=== PATIENT | female | born 2000 | race Caucasian/White ===

== ENCOUNTER 2023-10-05 14:02 | Emergency (ER) | payer BC, SELFPAY ==
[2023-10-05 14:17] VITALS: BP 152/92
--- NOTE | 2023-10-05 15:46 | ED.GENMED ---
History of Present Illness
General
Chief Complaint: Skin Problem
Source: patient
Exam Limitations: none
Time Seen by Provider: 10/05/23 15:28
Travel History
Have you had any contact with someone who has COVID-19?: No
Do you have any symptoms of coronavirus? Fever > 100 degrees, chills, cough, shortness of breath, sore throat, loss of taste or smell, muscle aches, or headache?: No
History of Present Illness
History of Present Illness:
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 She states upon awakening this morning after sleeping the swelling improved. She
denies any pain to the ear. No chest pain shortness of breath. No fevers. No skin changes otherwise. No other complaints at this time.
Past History
Past History
ED Past Medical History: Other (Presumptive diagnosis of gastritis/ulcer)
ED Past Surgical History: None
Social History
Tobacco: Non-smoker
Alcohol: None
Drug: Marijuana
Personal: Partner
Phy Exam
Physical Exam
Physical Exam:
General: Well-appearing female no acute respiratory distress HEENT: Normocephalic atraumatic
Extremities: No cyanosis. There is a varicosity noted over the inferior portion of the medial malleolus of the right ankle. No overlying erythema fluctuance or tenderness
Vascular: 2+ dorsalis pedis pulse right with no calf tenderness or edema
Skin intact no laceration
Course
Vital Signs
Initial and Last Documented VS:
Initial Vital Signs
Temp Pulse Resp BP Pulse Ox
98.2 F 89 16 152/92 98
10/05/23 14:17 10/05/23 14:17 10/05/23 14:17 10/05/23 14:17 10/05/23 14:17
Last Documented Vital Signs
Temp Pulse Resp BP Pulse Ox
98.2 F 89 16 152/92 98
10/05/23 14:17 10/05/23 14:17 10/05/23 14:17 10/05/23 14:17 10/05/23 14:17
MDM/Problems Addressed
Differential Diagnosis Includes:
Patient noticed swelling to the medial ankle after working a long shift on her feet yesterday. No signs of abscess or discrete fluid collection. No sign of infectious process but exam most consistent with varicose vein. Reassured patient
recommended compression stockings while at work stable for discharge
*Critical Care Note
Total Time (30-74mins, 75-104mins- exclusive of procedures): Not Applicable
ED Attending Note
-
Portions of this chart may have been created with voice recognition software.� Occasional wrong word or��sound alike� substitutions may have occurred due to the inherent limitations of voice recognition software.
Discharge Plan
Departure
Patient Disposition: Home (Routine Discharge)
Date of Disposition: 10/05/23
Time of Disposition: 15:49
Patient with high blood pressure during this ER visit?: No
Discharge Problem:
Varicose vein of leg
Prescriptions:
No Action
docusate sodium [Colace] 100 mg capsule
100 mg PO BID Qty: 30 0RF
hydrocortisone acetate [Anusol-HC] 25 mg suppository
25 mg MI DAILY Qty: 12 0RF
Referrals:
NONE,* [Family Provider] -
Activity Restrictions/Additional Instructions:
Elevate for swelling. Consider using compression stockings while at work and on your feet. Return if worse otherwise follow-up with family doctor.
Interventions
Interventions:
*ED COVID-19 Vaccine History Last Done: 10/05/23 14:17
ED-Skin Assessment Last Done: 10/05/23 14:29
== END 2023-10-05 16:13 | disposition home or self-care (01) ==
LOC: EMR 14:02
PROVIDERS: EMERGENCY PHYSICIAN Student in an Organized Health Care Education/Training Program
DX: I83.891 Varicose veins of right lower extremity with other complications (principal)
CPT/HCPCS: 99281

== ENCOUNTER 2023-10-17 19:47 | Emergency (ER) | payer BC, SELFPAY ==
[2023-10-17 19:48] VITALS: BP 143/94
--- NOTE | 2023-10-17 21:03 | ED.GENMED ---
History of Present Illness
General
Chief Complaint: Musculo-Skeletal Complaint
Time Seen by Provider: 10/17/23 21:03
Travel History
Have you had any contact with someone who has COVID-19?: No
Do you have any symptoms of coronavirus? Fever > 100 degrees, chills, cough, shortness of breath, sore throat, loss of taste or smell, muscle aches, or headache?: No
History of Present Illness
History of Present Illness:
HPI: The patient presents with cramping in the right calf. She was here couple weeks ago with some pain of the right heel. The pain has now migrated up to the right calf described as cramping and she does have some vague associated shortness of
breath like she had a few weeks ago as well.
EXAM:
GENERAL: Well appearing in no distress
HEENT: Moist oral mucosa
PSYCHIATRIC: Appropriate mental status, normal insight and judgement
EXTREMITIES: Right Achilles is intact, there is no significant calf swelling or tenderness, there is no evidence for infection
SKIN: No rash, no lesions
TIME OF INITIAL ENCOUNTER: 9 PM
NUMBER AND COMPLEXITY OF PROBLEMS ADDRESSED AT THE ENCOUNTER
� Chronic conditions affecting care: GERD, anxiety, bipolar
� Acute Exacerbation and/or Progression of Chronic Illness: This is an acute problem
� Differential Diagnosis includes: Nonspecific musculoskeletal pain, muscle cramps, DVT less likely
AMOUNT AND/OR COMPLEXITY OF DATA TO BE REVIEWED AND ANALYZED
� I performed an independent evaluation of and my interpretation is:
EKG:
CT:
X-rays:
Laboratory Studies:
Other: Ultrasound imaging shows no evidence of DVT
� Review of other/old records: I reviewed the notes from 2 weeks ago when the patient was here
� Clinical information was obtained by an independent historian: None needed
� Prescriptions/Medications Considered but not given:
� Further testing considered but not performed:
RISK OF COMPLICATIONS AND/OR MORBIDITY OR MORTALITY OF PATIENT MANAGEMENT
� Social determinants of health affecting care: Lives at home
� Discussion with other providers:
� Escalation of care including admission/observation vs risk of discharge considered: Since the patient has right calf cramping, will obtain ultrasound imaging for further evaluation. Ultrasound negative. Suspect more of a
muscular etiology.
Past History
Past History
ED Past Medical History: Other (Presumptive diagnosis of gastritis/ulcer)
ED Past Surgical History: None
Social History
Tobacco: Non-smoker
Alcohol: None
Drug: Marijuana
Personal: Partner
Phy Exam
Physical Exam
Physical Exam:
See HPI
Course
Orders/Labs/Results
Orders:
Orders
10/17/23 21:11
US Legs, Right [US Periph Venous LOWER Ext RT] Urgent
Comment:
Reason For Exam: R calf cramping sob
Vital Signs
Initial and Last Documented VS:
Initial Vital Signs
Temp Pulse Resp BP Pulse Ox
98.4 F 120 18 143/94 97
10/17/23 19:48 10/17/23 19:48 10/17/23 19:48 10/17/23 19:48 10/17/23 19:48
Last Documented Vital Signs
Temp Pulse Resp BP Pulse Ox
98.4 F 100 20 134/89 100
10/17/23 19:48 10/17/23 23:10 10/17/23 23:10 10/17/23 23:10 10/17/23 23:10
*Critical Care Note
Total Time (30-74mins, 75-104mins- exclusive of procedures): Not Applicable
ED Attending Note
-
Portions of this chart may have been created with voice recognition software.� Occasional wrong word or��sound alike� substitutions may have occurred due to the inherent limitations of voice recognition software.
Discharge Plan
Departure
Patient Disposition: Home (Routine Discharge)
Date of Disposition: 10/17/23
Time of Disposition: :24
Patient with high blood pressure during this ER visit?: Yes
Discharge Problem:
Cramp in lower leg
Instructions: Muscle Strain (DC)
Prescriptions:
No Action
omeprazole 20 mg Capsule,Delayed Release(Dr/Ec)
20 mg PO DAILY
Referrals:
NONE,* [Family Provider] -
Stand Alone Forms: Return to Work
Activity Restrictions/Additional Instructions:
The cause of your symptoms is unclear. Ultrasound imaging shows no sign of blood clot. Return here if worse.
Interventions
Interventions:
*Risk Screen - Suicide Last Done: 10/17/23 23:14
*General Assessment Last Done: 10/17/23 23:13
*Neglect/Abuse Screening Last Done: 10/17/23 23:14
ED- Fall Risk Assessment Last Done: 10/17/23 23:21
*ED COVID-19 Vaccine History Last Done: 10/17/23 23:12
ED-Musculoskeletal Assessment Last Done: 10/17/23 23:21
[2023-10-17 23:09] VITALS: BMI 44.9
[2023-10-17 23:10] VITALS: BP 134/89
== END 2023-10-17 23:36 | disposition home or self-care (01) ==
LOC: EMR 19:47
PROVIDERS: EMERGENCY PHYSICIAN Emergency Medicine
DX: R25.2 Cramp and spasm (principal); R03.0 Elevated blood-pressure reading, without diagnosis of hypertension
CPT/HCPCS: 99284; 93971

== ENCOUNTER 2024-01-26 23:15 | Emergency (ER) | payer BC, SELFPAY ==
[2024-01-26 23:26] VITALS: BP 138/66
[2024-01-27] VITALS: BP 132/65
[2024-01-27 00:20] VITALS: BMI 48.2
--- NOTE | 2024-01-27 00:50 | ED.GENMED ---
History of Present Illness
General
Chief Complaint: Chest Pain
Source: patient
Exam Limitations: none
Time Seen by Provider: 01/27/24 00:24
History of Present Illness
History of Present Illness:
This is a 23 year old female that comes in with c/o getting a shock. States that her cat must have pulled the plug out on her Dehumidifier. Sates that she didn't realize it but there was a puddle of water that she stepped in when she went to plug
in her air conditioner. State that she got a shock on the right index finger and it went up her arm into her chest. States that she got scarred and felt SOB. States that her muscle in the right arm feels sore. States that she has a very slight
headache. Denies any fever, chills, chest pain now, abd pain, nausea, vomiting, diarrhea, dizziness, urinary burning.
Past History
Past History
ED Past Medical History: GERD, Psychiatric (Anxiety, Bipolor, Depression) and Other (Peptic ulcer)
ED Past Surgical History: None
Social History
Tobacco: Former smoker
Alcohol: None
Drug: Marijuana
Personal: Single
Living: with family
Review of Systems
Review of Systems
All Other Systems: ROS reviewed and negative except as documented in HPI and ROS
Constitutional: Reports no symptoms; Denies fever or chills
EENT: Reports no symptoms
Respiratory: Reports trouble breathing; Denies cough
Cardiac: Reports no symptoms; Denies chest pain
ABD/GI: Reports no symptoms; Denies abdominal pain, nausea, vomiting or diarrhea
: Reports no symptoms; Denies dysuria, frequency or urgency
Musculoskeletal: Reports no symptoms
Skin: Reports no symptoms
Neurological: Reports headache (very slight); Denies dizzy
Psychiatric: Reports no symptoms
Phy Exam
General Physical Exam
General Presentation: well appearing and no apparent distress
General age: appears stated age
General Skin: warm and dry
General Habitus: normal
General Mental: alert
General Hydration: appears well hydrated
ENT Exam
ENT Exam: TM's normal, pharynx normal and neck supple
Eye Exam
Eye Exam: EOMI
Cardiovascular Exam
Cardiovascular Exam: regular rate/rhythm, no edema, no murmur and normal peripheral pulses
Pulmonary Exam
Pulmonary Exam: lungs clear, no respiratory distress, no rales, chest non tender, no crackles, no rhonchi, no wheezing and no cough
Gastrointestinal Exam
Gastrointestinal Exam: normal bowel sounds, non tender, soft, no organomegaly, no pulsatile mass and non distended
Musculoskeletal Exam
Musculoskeletal Exam: full ROM and no edema
Skin Exam
Skin Exam: normal color, warm/dry, no rash, no petechia and other (NO entrance or exit wound. Negative for any redness of the finger. )
Psychiatric Exam
Psychiatric Exam: normal mood/affect
Scores
Heart Score for Chest Pain Patients
STEMI patient?: Not applicable
Course
Orders/Labs/Results
Orders:
Orders
01/26/24 23:30
EKG [Electrocardiogram (*1)] Urgent
Reason for Study: Chest Pain
01/26/24 23:31
EKG- Treatment ONCE
Vital Signs
Initial and Last Documented VS:
Initial Vital Signs
Temp Pulse Resp BP Pulse Ox
98.6 F 88 16 138/66 99
01/26/24 23:26 01/26/24 23:26 01/26/24 23:26 01/26/24 23:26 01/26/24 23:26
Last Documented Vital Signs
Temp Pulse Resp BP Pulse Ox
98.6 F 80 18 132/65 99
01/26/24 23:26 01/27/24 00:00 01/27/24 00:00 01/27/24 00:00 01/27/24 00:00
MDM/Problems Addressed
Differential Diagnosis Includes:
electric shock.
MDM/Problems Addressed:
This is a 23 year old female that comes in with c/o getting an electric shock when she went to plug in her air conditioner. States that her cat must have pulled out the plug go her Dehumidifier and she didn't know if and stepped into some water.
State that she got scarred and thought she better get checked out.
ECG done. Explained to patient that her ECG is normal. There is no entrance or Exit wound. Will discharge patient home.
Chronic conditions affecting care:
NA
Acute Exacerbation and/or Progression of Chronic Illness:
NA
*Pulse Oximetry
Patient hypoxic: no
*EKG
Interpreted by ED Provider?: Yes
Heart Rate: 84
Rate: normal
Rhythm: sinus
[place]: normal axis
Interval: normal interval
QRS Pattern: normal QRS
Ischemia: no ischemia
*S[place]yer [place] Slabs Interpretation
Rate: [place] Slabs- N/A
*Critical Care Note
Total Time (30-74mins, 75-104mins- exclusive of procedures): Not Applicable
ED Attending Note
-
Portions of this chart may have been created with voice recognition software.� Occasional wrong word or��sound alike� substitutions may have occurred due to the inherent limitations of voice recognition software.
Discharge Plan
Departure
Patient Disposition: Home (Routine Discharge)
Date of Disposition: 01/27/24
Time of Disposition: 00:59
Patient with high blood pressure during this ER visit?: Yes
Condition: Good
Covid-19: Not Applicable
Discharge Problem:
Electric shock
Instructions: Electrical Shock (DC), BLOOD PRESSURE
Prescriptions:
No Action
omeprazole 20 mg Capsule,Delayed Release(Dr/Ec)
20 mg PO DAILY
Referrals:
NONE,* [Family Provider] -
Activity Restrictions/Additional Instructions:
As discussed, your ECG is normal. You may take any Tylenol for your arm discomfort. Please increase your water intake to 8-8oz glasses daily. Follow up with the family doctor as needed. IF YOU HAVE ANY OTHER CONCERNS PLEASE RETURN TO THE EMERGENCY
ROOM.
Interventions
Interventions:
*Risk Screen - Suicide Last Done: 01/27/24 00:22
*General Assessment Last Done: 01/27/24 00:21
*Neglect/Abuse Screening Last Done: 01/27/24 00:22
ED- Fall Risk Assessment Last Done: 01/27/24 00:24
*ED COVID-19 Vaccine History Last Done: 01/27/24 00:21
ED- Cardiac Assessment Last Done: 01/27/24 00:24
Discharge Date and Time
Print Language: SURINAMESE
== END 2024-01-27 01:07 | disposition home or self-care (01) ==
LOC: EMR 23:15
PROVIDERS: EMERGENCY PHYSICIAN Emergency Medicine
DX: T75.4XXA Electrocution, initial encounter (principal); R51.9 Headache, unspecified; R06.02 Shortness of breath; M79.601 Pain in right arm; R07.89 Other chest pain; W86.8XXA Exposure to other electric current, initial encounter; Y92.009 Unspecified place in unspecified non-institutional (private) residence as the place of occurrence of the external cause; R03.0 Elevated blood-pressure reading, without diagnosis of hypertension; K21.9 Gastro-esophageal reflux disease without esophagitis; Z87.11 Personal history of peptic ulcer disease; Z87.891 Personal history of nicotine dependence; F41.9 Anxiety disorder, unspecified; F32.A Depression, unspecified; F31.9 Bipolar disorder, unspecified
CPT/HCPCS: 99283; 93005

== ENCOUNTER 2024-04-04 23:44 | Emergency (ER) | payer OTHER, SELFPAY ==
[2024-04-04 23:46] VITALS: BP 162/100
--- NOTE | 2024-04-05 01:31 | ED.GENMED ---
History of Present Illness
General
Chief Complaint: Skin Problem
Source: patient
Exam Limitations: none
Time Seen by Provider: 04/05/24 01:24
History of Present Illness
History of Present Illness:
23-year-old female presents with rash. She states she noticed it on the left forearm and also noticed it to the left upper back. States is just been itching. She was initially worried it was bedbugs but notes that there was no rash anywhere else.
Did not try anything at home. Symptoms have been ongoing for about a week. She does have a history of eczema and does not typically use lotions.
Past History
Past History
ED Past Medical History: GERD, Psychiatric (Anxiety, Bipolar, Depression) and Other (Peptic ulcer)
ED Past Surgical History: None
Social History
Tobacco: Former smoker
Alcohol: None
Drug: Marijuana
Personal: Single
Living: with family
Phy Exam
Physical Exam
Physical Exam:
CONSTITUTIONAL Vital signs reviewed, Patient alert and oriented to person, place and time. Well-appearing
HEAD atraumatic, normocephalic.
EYES eyelids normal to inspection, Extraocular muscles intact, Conjunctiva normal, Sclera normal.
NECK normal range of motion, Trachea midline, no jugular venous distention.
RESP no respiratory distress
BACK No obvious deformities
UPPER EXTREMITY Gross Range of motion normal, gross motor strength normal. back.
LOWER EXTREMITY Gross range of motion normal, Gross motor strength normal
NEURO Speech normal, No focal motor deficits include, Essence coma scale 15, Memory normal, Cranial Nerves intact to screening exam.
SKIN Skin warm, dry, and normal in color. Very faint sandpaperlike rash that patient reports pruritic to the left forearm. Small round dry patch noted on her left upper
PSYCHIATRIC Patient oriented to person place and time, Normal affect.
Course
Vital Signs
Initial and Last Documented VS:
Initial Vital Signs
Temp Pulse Resp BP Pulse Ox
97.9 F 98 19 162/100 97
04/04/24 23:46 04/04/24 23:46 04/04/24 23:46 04/04/24 23:46 04/04/24 23:46
Last Documented Vital Signs
Temp Pulse Resp BP Pulse Ox
97.9 F 98 19 162/100 97
04/04/24 23:46 04/04/24 23:46 04/04/24 23:46 04/04/24 23:46 04/04/24 23:46
MDM/Problems Addressed
MDM/Problems Addressed:
Dermatitis
*Pulse Oximetry
Patient hypoxic: no
*Critical Care Note
Total Time (30-74mins, 75-104mins- exclusive of procedures): Not Applicable
Data Reviewed
Source: patient
Patient Management
Escalation/DeEscalation of care consider admission/obs:
Suspect eczematous dermatitis. Will treat with triamcinolone ointment. Outpatient follow-up recommended. Also recommend moisturizing cream
ED Attending Note
-
Portions of this chart may have been created with voice recognition software.� Occasional wrong word or��sound alike� substitutions may have occurred due to the inherent limitations of voice recognition software.
Discharge Plan
Departure
Patient Disposition: Home (Routine Discharge)
Date of Disposition: 04/05/24
Time of Disposition: 01:33
Patient with high blood pressure during this ER visit?: Yes
Discharge Problem:
Dermatitis
Instructions: Skin Rash ED
Prescriptions:
New
triamcinolone acetonide 0.1 % ointment
1 applic topical TID Qty: 80 0RF
No Action
omeprazole 20 mg Capsule,Delayed Release(Dr/Ec)
20 mg PO DAILY
Referrals:
NONE,* [Family Provider] -
Activity Restrictions/Additional Instructions:
Return for fevers, worsening rash, difficulty breathing or any other concerns. Please see your doctor or dermatology in the next 1 week if symptoms persist.
Interventions
Interventions:
*Risk Screen - Suicide Last Done: 04/04/24 23:46
*General Assessment Last Done: 04/04/24 23:46
*Neglect/Abuse Screening Last Done: 04/04/24 23:46
*ED COVID-19 Vaccine History Last Done: 04/04/24 23:46
Discharge Date and Time
Print Language: BERMUDIAN
[2024-04-05 01:38] VITALS: BP 128/87
== END 2024-04-05 01:45 | disposition home or self-care (01) ==
LOC: EMR 23:44
PROVIDERS: EMERGENCY PHYSICIAN Emergency Medicine
DX: L30.9 Dermatitis, unspecified (principal); Z87.891 Personal history of nicotine dependence
CPT/HCPCS: 99282

== ENCOUNTER 2024-04-09 23:13 | Emergency (ER) | payer OTHER, SELFPAY ==
[2024-04-09 23:14] VITALS: BP 136/82
[2024-04-09 23:39] VITALS: BMI 47.0
--- NOTE | 2024-04-09 23:48 | ED.GENMED ---
History of Present Illness
General
Chief Complaint: Skin Problem
Source: patient
Exam Limitations: none
Time Seen by Provider: 04/09/24 23:34
History of Present Illness
History of Present Illness:
This is a 23 year old female that comes in with c/o hives. States that this started about a week ago and her skin was a little discolored and it started on the left arm. Patient was seen here 3 days ago and put on a steroid cream. States that this
is not helping and now the rash has spread all over her body. States that it is itchy. Denies any new soaps, lotions or detergents. States that she has had some nausea. States that she is under a lot of stress and she has an appointment with the
Payroll Auditor next week. Denies any fever, chills, chest pain, SOB, abd pain, vomiting, diarrhea, headache, dizziness, urinary burning.
Past History
Past History
ED Past Medical History: GERD, Psychiatric (Anxiety, Bipolar, Depression) and Other (Peptic ulcer)
ED Past Surgical History: None
Social History
Tobacco: Former smoker
Alcohol: None
Drug: Marijuana
Personal: Single
Living: with family
Review of Systems
Review of Systems
All Other Systems: ROS reviewed and negative except as documented in HPI and ROS
Constitutional: Reports no symptoms; Denies fever or chills
EENT: Reports no symptoms
Respiratory: Reports no symptoms; Denies cough or trouble breathing
Cardiac: Reports no symptoms; Denies chest pain
ABD/GI: Reports nausea; Denies abdominal pain, vomiting or diarrhea
: Reports no symptoms; Denies dysuria, frequency or urgency
Musculoskeletal: Reports no symptoms
Skin: Reports rash (Hives all over)
Neurological: Reports no symptoms; Denies dizzy or headache
Psychiatric: Reports no symptoms
Phy Exam
General Physical Exam
General Presentation: no apparent distress
General age: appears stated age
General Skin: warm and dry
General Habitus: normal
General Mental: alert
General Hydration: appears well hydrated
ENT Exam
ENT Exam: TM's normal, pharynx normal and neck supple
Eye Exam
Eye Exam: EOMI
Cardiovascular Exam
Cardiovascular Exam: regular rate/rhythm, no edema, no murmur and normal peripheral pulses
Pulmonary Exam
Pulmonary Exam: lungs clear, no respiratory distress, no rales, chest non tender, no crackles, no rhonchi and no cough
Gastrointestinal Exam
Gastrointestinal Exam: normal bowel sounds, non tender, soft, no organomegaly, no pulsatile mass and non distended
Musculoskeletal Exam
Musculoskeletal Exam: full ROM and no edema
Skin Exam
Skin Exam: normal color, warm/dry, no petechia and other (Hives on arms, armpits, under breast, abd and into the groin)
Psychiatric Exam
Psychiatric Exam: normal mood/affect
Course
Orders/Labs/Results
Orders:
Orders
04/09/24 23:20
HCG, Urine Qualitative Screen Urgent
Date Specimen was Collected: 04/09/24
Time Specimen was Collected: 23:20
Test Result ONCE
04/09/24 23:46
Diphenhydramine [Benadryl] 50 mg PO NOW STA
Famotidine [Pepcid] 20 mg PO NOW STA
Prednisone [Deltasone] 50 mg PO NOW STA
Vital Signs
Initial and Last Documented VS:
Initial Vital Signs
Temp Pulse Resp BP Pulse Ox
97.4 F 98 20 136/82 95
04/09/24 23:14 04/09/24 23:14 04/09/24 23:14 04/09/24 23:14 04/09/24 23:14
Last Documented Vital Signs
Temp Pulse Resp BP Pulse Ox
97.4 F 98 20 136/82 95
04/09/24 23:14 04/09/24 23:14 04/09/24 23:14 04/09/24 23:14 04/09/24 23:14
MDM/Problems Addressed
Differential Diagnosis Includes:
Hives,
MDM/Problems Addressed:
This is a 23 year old female that comes in with c/o rash. States that this started a week ago and it getting worse. States that she as here 3 days ago and it was only on the left arm. States that know it has spread all over.
Will give Oral medication and patient refused an IV. Will give steroid, Pepcid and Benadryl. Will give prescription for steroid for the next 5 days. Patient to use Pepcid which is over the counter and Zyrtec or Claritin. Follow up with the
Payroll Auditor next week as scheduled. Return with any concerns.
Chronic conditions affecting care: Psychiatric illness (Anxiety)
Acute Exacerbation and/or Progression of Chronic Illness: Psychiatric illness (Anxiety, stress)
*Pulse Oximetry
Patient hypoxic: no
*EKG
Interpreted by ED Provider?: NA
Rate: EKG- N/A
*Underwater Hunter Trapper Interpretation
Rate: Underwater Hunter Trapper- N/A
*Critical Care Note
Total Time (30-74mins, 75-104mins- exclusive of procedures): Not Applicable
ED Attending Note
-
Portions of this chart may have been created with voice recognition software.� Occasional wrong word or��sound alike� substitutions may have occurred due to the inherent limitations of voice recognition software.
Discharge Plan
Departure
Patient Disposition: Home (Routine Discharge)
Date of Disposition: 04/09/24
Time of Disposition: 23:57
Patient with high blood pressure during this ER visit?: Yes
Covid-19: Not Applicable
Discharge Problem:
Hives
Instructions: Hives, BLOOD PRESSURE
Prescriptions:
New
prednisone 20 mg tablet
40 mg PO DAILY Qty: 10 0RF
No Action
omeprazole 20 mg Capsule,Delayed Release(Dr/Ec)
20 mg PO DAILY
triamcinolone acetonide 0.1 % ointment
1 applic topical TID Qty: 80 0RF
Referrals:
UNKNOWN - PT DOES,NOT KNOW [Family Provider] -
Activity Restrictions/Additional Instructions:
As discussed, you have been given Oral steroids, Pepcid and Benadryl here. You have had a prescription for a steroid sent to your Pharmacy for the next 5 days. Please also buy Pepcid 20 mg which is over the counter and Benadryl to help with the
Itching. You may also use Zyrtec to help with the allergic reaction. Follow up with the Payroll Auditor as scheduled. IF YOU HAVE ANY OTHER CONCERNS PLEASE RETURN TO THE EMERGENCY ROOM.
Interventions
Interventions:
*Risk Screen - Suicide Last Done: 04/09/24 23:14
*General Assessment Last Done: 04/09/24 23:39
*Neglect/Abuse Screening Last Done: 04/09/24 23:14
*ED COVID-19 Vaccine History Last Done: 04/09/24 23:39
ED-Skin Assessment Last Done: 04/09/24 23:39
Discharge Date and Time
Print Language: KAZAKH
[2024-04-09] MEDS: PEPCID 20 MG PO (23:57)
[2024-04-09] MEDS: DELTASONE 50 MG PO (23:57)
[2024-04-09] MEDS: BENADRYL 50 MG PO (23:57)
== END 2024-04-10 00:09 | disposition home or self-care (01) ==
LOC: EMR 23:13
PROVIDERS: EMERGENCY PHYSICIAN Emergency Medicine
DX: L50.9 Urticaria, unspecified (principal); K21.9 Gastro-esophageal reflux disease without esophagitis; Z87.11 Personal history of peptic ulcer disease; Z87.891 Personal history of nicotine dependence
CPT/HCPCS: 99283

== ENCOUNTER 2024-06-09 16:18 | Emergency (ER) | payer OTHER, SELFPAY ==
[2024-06-09 16:25] VITALS: BP 165/96
[2024-06-09] MEDS: DELTASONE 50 MG PO (17:45)
[2024-06-09] MEDS: TYLENOL 1000 MG PO (17:45)
[2024-06-09 18:26] LABS: Monotest Positive (Negative)
--- NOTE | 2024-06-09 18:28 | ED.GENMED ---
History of Present Illness
General
Chief Complaint: Throat Problem
Source: patient and records
Exam Limitations: none
Time Seen by Provider: 06/09/24 17:05
Nursing documentation reviewed up to this point in time: agreed with
History of Present Illness
History of Present Illness:
Patient is a 23-year-old female presents to the emergency department complaining of 6 to 7 days of sore throat and pain with swallowing. Patient noticed a white exudate on the tonsils today and bleeding from the left tonsil. Patient denies any
abdominal pain or GI symptoms. Patient's had some nasal congestion. Patient occasionally has a productive cough and feels as though she is wheezing. Patient is a smoker. Patient denies fever chills but admits to increased fatigue. Patient has a
history of reflux and PCOS. Patient denies any neck pain or stiffness. Patient denies any shortness of breath or chest pain.
Past History
Past History
ED Past Medical History: GERD, Psychiatric (Anxiety, Bipolar, Depression) and Other (Peptic ulcer, PCOS)
ED Past Surgical History: None
Social History
Tobacco: Smoker
Alcohol: None
Drug: Marijuana
Personal: Single
Living: with family
Review of Systems
Review of Systems
All Other Systems: ROS reviewed and negative except as documented in HPI and ROS
Constitutional: Reports fatigue; Denies fever or chills
EENT: Reports sore throat and runny nose
Respiratory: Reports cough; Denies trouble breathing
Cardiac: Reports no symptoms
ABD/GI: Reports no symptoms
: Reports no symptoms
Musculoskeletal: Reports no symptoms
Skin: Reports no symptoms
Neurological: Reports no symptoms
Hematologic/Lymphatic: Reports no symptoms
Phy Exam
Physical Exam
Physical Exam:
Physical Exam
General: mild distress, alert and appropriate, well nourished, well hydrated
HENT: Normocephalic, supple with no lymphadenopathy, no thyromegaly. Oropharynx shows erythema and mild edema of the tonsillar pillars but no exudate or uvula swelling.
Eyes: Clear sclera, conjuctiva without injection
Heart: Regular rhythm and rate. No S3, S4. No murmur.
Lungs: No respiratory distress, no stridor, lung sounds clear and equal bilaterally
Abdomen: Soft, nontender, no organomegaly, BS good
Neuro: Alert and oriented x 3, CN II - XII intact, no motor focality, no cerebellar dysfunction
Skin: no rash
Psychiatric: well kept. interactive and cooperative
Extremities: No edema, cyanosis, tenderness
Course
Orders/Labs/Results
Orders:
Orders
06/09/24 17:22
Acetaminophen [Tylenol] 1,000 mg PO NOW STA
Prednisone [Deltasone] 50 mg PO NOW STA
06/09/24 17:41
Monotest Urgent
Rapid Strep Group A Urgent
RACHEL Source: Throat/Pharynx
Specimen Description:
Date Specimen was Collected: 06/09/24
Time Specimen was Collected: 17:40
Abnormal Lab Results
06/09/24
17:41
Monoscreen Positive A
(Negative)
Vital Signs
Initial and Last Documented VS:
Initial Vital Signs
Temp Pulse Resp BP Pulse Ox
98.4 F 88 16 165/96 98
06/09/24 16:25 06/09/24 16:25 06/09/24 16:25 06/09/24 16:25 06/09/24 16:25
Last Documented Vital Signs
Temp Pulse Resp BP Pulse Ox
98.4 F 88 16 165/96 98
06/09/24 16:25 06/09/24 16:25 06/09/24 16:25 06/09/24 16:25 06/09/24 16:25
*Radiology
Radiology exam reviewed: other (na)
*Pulse Oximetry
Patient hypoxic: no
*EKG
Interpreted by ED Provider?: NA
*Laserist Interpretation
Rate: Laserist- N/A
*Critical Care Note
Total Time (30-74mins, 75-104mins- exclusive of procedures): Not Applicable
Update Note
Update Note:
Patient is positive for mono.
ED Attending Note
-
Portions of this chart may have been created with voice recognition software.� Occasional wrong word or��sound alike� substitutions may have occurred due to the inherent limitations of voice recognition software.
Discharge Plan
Departure
Patient Disposition: Home (Routine Discharge)
Date of Disposition: 06/09/24
Time of Disposition: 18:42
Patient with high blood pressure during this ER visit?: Yes
Condition: Fair
Covid-19: Not Applicable
Discharge Problem:
Infectious mononucleosis
Instructions: Sore Throat, Adult (DC), Mononucleosis (DC), BLOOD PRESSURE
Prescriptions:
New
prednisone 20 mg tablet
20 mg PO BID Qty: 8 0RF
No Action
omeprazole 20 mg Capsule,Delayed Release(Dr/Ec)
20 mg PO DAILY
triamcinolone acetonide 0.1 % ointment
1 applic topical TID Qty: 80 0RF
prednisone 20 mg tablet
40 mg PO DAILY Qty: 10 0RF
Referrals:
NONE,* [Family Provider] -
Activity Restrictions/Additional Instructions:
Acetaminophen 1000 mg every 6 hours for pain and fever. Make sure to drink plenty of fluids. Rest. Any increasing pain or new abdominal pain please return or see your family physician.
Interventions
Interventions:
*Risk Screen - Suicide Last Done: 06/09/24 16:25
*General Assessment Last Done: 06/09/24 16:25
*Neglect/Abuse Screening Last Done: 06/09/24 16:25
ED- Fall Risk Assessment Last Done: 06/09/24 17:06
*ED COVID-19 Vaccine History Last Done: 06/09/24 16:25
ED-EENT Assessment Last Done: 06/09/24 17:06
ED- Pulmonary Assessment Last Done: 06/09/24 17:06
Discharge Date and Time
Print Language: PASHTO
== END 2024-06-09 19:41 | disposition home or self-care (01) ==
LOC: EMR 16:18
PROVIDERS: EMERGENCY PHYSICIAN Emergency Medicine
DX: B27.90 Infectious mononucleosis, unspecified without complication (principal); K21.9 Gastro-esophageal reflux disease without esophagitis; F17.200 Nicotine dependence, unspecified, uncomplicated; Z87.11 Personal history of peptic ulcer disease
CPT/HCPCS: 99283; 86308; 87070; 87880

== ENCOUNTER 2024-06-26 21:34 | Emergency (ER) | payer OTHER, SELFPAY ==
[2024-06-26 21:36] VITALS: BP 164/95
--- NOTE | 2024-06-26 22:39 | ED.GENMED ---
History of Present Illness
General
Chief Complaint: Fatigue
Time Seen by Provider: 06/26/24 22:05
History of Present Illness
History of Present Illness:
23-year-old female without significant past medical history presenting to the emergency department for generalized fatigue. Patient reports that she was diagnosed with mono 10 days ago. She had been started on steroids, had improved, however
steroids were completed 3 days ago and her symptoms have returned. She notes sore throat and also some upper abdominal discomfort, particularly left upper quadrant. Denies any significant injury or contact to the abdomen. Fevers have been
improving. Denies chest pain or difficulty breathing. She has been able to tolerate p.o. She denies additional medical complaints
Past History
Past History
ED Past Medical History: GERD, Psychiatric (Anxiety, Bipolar, Depression) and Other (Peptic ulcer, PCOS)
ED Past Surgical History: None
Social History
Tobacco: Smoker
Alcohol: None
Drug: Marijuana
Personal: Single
Living: with family
Phy Exam
Physical Exam
Physical Exam:
General: Well-appearing, no clinical signs of dehydration, nontoxic and in no acute distress
HEENT: protecting airway, no oropharyngeal erythema, no significant tonsillar swelling
Neck: appears supple
CV: Normal heart rate, regular rhythm
Resp: No accessory muscle use, no increased work of breathing, lungs clear to auscultation bilaterally
Abd: Soft and non-distended, no tenderness to palpation
Extremities: No deformities, no swelling, no erythema
Neuro: alert, no focal neurologic deficit
: deferred
Rectal: deferred
Psych: Normal affect
Skin: Intact
Course
Vital Signs
Initial and Last Documented VS:
Initial Vital Signs
Temp Pulse Resp BP Pulse Ox
98.3 F 101 20 164/95 99
06/26/24 21:36 06/26/24 21:36 06/26/24 21:36 06/26/24 21:36 06/26/24 21:36
Last Documented Vital Signs
Temp Pulse Resp BP Pulse Ox
98.3 F 101 20 164/95 99
06/26/24 21:36 06/26/24 21:36 06/26/24 21:36 06/26/24 21:36 06/26/24 21:36
MDM/Problems Addressed
MDM/Problems Addressed:
23-year-old female with no diagnosis of mono presenting for generalized fatigue. Vital signs on arrival for mild hypertension.
On exam patient is well-appearing, resting comfortably, no acute distress comfort. No oropharyngeal swelling or airway compromise. Normal phonation of voice. Suspect fatigue is secondary to known monoinfection discomfort to the left upper
quadrant, possible mild splenomegaly. Patient is morbidly obese with difficult examination, however no profound splenomegaly on palpation. In addition, no significant tenderness to palpation without concern for serious intra-abdominal process or
infection. Does not feel patient requires any advanced at this time. Patient is requesting steroids, feel reasonable, will restart on short course. Otherwise feel stable for discharge with continued outpatient supportive therapy. Return
precautions discussed and patient verbalized understanding
*Critical Care Note
Total Time (30-74mins, 75-104mins- exclusive of procedures): Not Applicable
ED Attending Note
-
Portions of this chart may have been created with voice recognition software.� Occasional wrong word or��sound alike� substitutions may have occurred due to the inherent limitations of voice recognition software.
Discharge Plan
Departure
Patient Disposition: Home (Routine Discharge)
Date of Disposition: 06/26/24
Time of Disposition: 22:43
Patient with high blood pressure during this ER visit?: Yes
Condition: Good
Discharge Problem:
Fatigue, Mononucleosis
Instructions: Mononucleosis
Prescriptions:
New
methylprednisolone [Medrol (Mckay)] 4 mg tablets,dose pack
See Rx Instructions .ROUTE .COMPLEX Qty: 21 0RF
Rx Instructions:
for 6 days
No Action
omeprazole 20 mg Capsule,Delayed Release(Dr/Ec)
20 mg PO DAILY
triamcinolone acetonide 0.1 % ointment
1 applic topical TID Qty: 80 0RF
prednisone 20 mg tablet
40 mg PO DAILY Qty: 10 0RF
prednisone 20 mg tablet
20 mg PO BID Qty: 8 0RF
Stand Alone Forms: Return to Work
Activity Restrictions/Additional Instructions:
You were seen in the emergency department for fatigue
Your symptoms are suspected to be due to known mononucleosis.
Please follow-up closely with your primary care physician.
Return to the emergency department for any worsening of your symptoms such as increased pain to the throat, or any development of chest pain, difficulty breathing, abdominal pain with persistent vomiting and inability to tolerate food or liquid by
mouth (concern for dehydration), weakness, headache or confusion, fever greater than 100.4, or any additional symptoms that are concerning to you.
Thank you for choosing [facility].
Interventions
Interventions:
*Risk Screen - Suicide Last Done: 06/26/24 21:36
*General Assessment Last Done: 06/26/24 22:02
*Neglect/Abuse Screening Last Done: 06/26/24 21:36
*ED COVID-19 Vaccine History Last Done: 06/26/24 22:02
Discharge Date and Time
Print Language: YAKUT
== END 2024-06-26 23:00 | disposition home or self-care (01) ==
LOC: EMR 21:34
PROVIDERS: EMERGENCY PHYSICIAN Student in an Organized Health Care Education/Training Program
DX: B27.90 Infectious mononucleosis, unspecified without complication (principal); R53.83 Other fatigue; R10.10 Upper abdominal pain, unspecified; R03.0 Elevated blood-pressure reading, without diagnosis of hypertension; F31.9 Bipolar disorder, unspecified; K21.9 Gastro-esophageal reflux disease without esophagitis; F41.9 Anxiety disorder, unspecified; F32.A Depression, unspecified; E66.01 Morbid (severe) obesity due to excess calories; E28.2 Polycystic ovarian syndrome; F17.200 Nicotine dependence, unspecified, uncomplicated; Z87.11 Personal history of peptic ulcer disease
CPT/HCPCS: 99283

== ENCOUNTER 2024-07-12 02:04 | Emergency (ER) | payer OTHER, SELFPAY ==
[2024-07-12 02:12] VITALS: BP 156/98
--- NOTE | 2024-07-12 02:31 | ED.GENMED ---
History of Present Illness
<BETSY Chen - Last Filed: 07/12/24 02:51>
General
Chief Complaint: Throat Problem
Source: patient
Exam Limitations: none
Time Seen by Provider: 07/12/24 02:31
Nursing documentation reviewed up to this point in time: agreed with
History of Present Illness
History of Present Illness:
Pt is a 23 yo F with PMH of PCOS, GERD, anxiety, depression and infectious mononucleosis who presents with worsening sore throat x 1 week. Pt states she was diagnosed with mono 1 month ago here at the ED and was initially prescribed prednisone,
which seemed to help with her sore throat. Since ending the medication, she has used Tylenol and ibuprofen to help with the pain which has helped until now. She states her throat feels scratchy and it hurts to swallow. Pt states it hurts more on the
L side. She admits to associated L ear fullness. Pt denies CARTER, fever, n/v, rhinorrhea, dyspnea, SOB, chest pain, palpitations, abdominal pain.
Past History
<BETSY Chen - Last Filed: 07/12/24 02:51>
Past History
ED Past Medical History: GERD, Psychiatric (Anxiety, Bipolar, Depression) and Other (Peptic ulcer, PCOS)
ED Past Surgical History: None
Social History
Tobacco: Smoker
Alcohol: None
Drug: Marijuana
Personal: Single
Living: with family
Review of Systems
<BETSY Chen - Last Filed: 07/12/24 02:51>
Review of Systems
Allergies reviewed?: Yes
Constitutional: Reports fatigue; Denies fever, night sweats or chills
EENT: Reports sore throat; Denies runny nose
Respiratory: Denies cough, hemoptysis or trouble breathing
Cardiac: Denies chest pain or palpitations
ABD/GI: Denies abdominal pain, nausea, vomiting or diarrhea
: Denies dysuria
Musculoskeletal: Denies back pain
Neurological: Denies dizzy, headache, weakness or numbness
Phy Exam
<BETSY Chen - Last Filed: 07/12/24 02:51>
General Physical Exam
General Presentation: well appearing and no apparent distress
General age: appears stated age
General Skin: warm and dry
General Habitus: normal and obese
General Mental: alert
General Hydration: appears well hydrated
ENT Exam
ENT Exam: pharyngeal erythema
Additional ENT: uvula w/o deviation from midline; anterior cervical lymphadenopathy
Eye Exam
Eye Exam: PERRL
Cardiovascular Exam
Cardiovascular Exam: regular rate/rhythm and no murmur
Pulmonary Exam
Pulmonary Exam: lungs clear and no respiratory distress
Neurological Exam
Neurological Exam: alert, oriented x3 and speech normal
Course
<[facility] - Last Filed: 07/12/24 02:51>
Orders/Labs/Results
Orders:
Orders
07/12/24 03:12
Rapid Strep Group A Urgent
RACHEL Source: Throat/Pharynx
Specimen Description:
Date Specimen was Collected: 07/12/24
Time Specimen was Collected: 02:56
Vital Signs
Initial and Last Documented VS:
Initial Vital Signs
Temp Pulse Resp BP Pulse Ox
98.2 F 107 18 156/98 96
07/12/24 02:12 07/12/24 02:12 07/12/24 02:12 07/12/24 02:12 07/12/24 02:12
Last Documented Vital Signs
Temp Pulse Resp BP Pulse Ox
98.2 F 107 18 156/98 96
07/12/24 02:12 07/12/24 02:12 07/12/24 02:12 07/12/24 02:12 07/12/24 02:59
<Bradford Snider DO - Last Filed: 07/12/24 04:19>
Orders/Labs/Results
Orders:
Orders
07/12/24 03:12
Rapid Strep Group A Urgent
RACHEL Source: Throat/Pharynx
Specimen Description:
Date Specimen was Collected: 07/12/24
Time Specimen was Collected: 02:56
Vital Signs
Initial and Last Documented VS:
Initial Vital Signs
Temp Pulse Resp BP Pulse Ox
98.2 F 107 18 156/98 96
07/12/24 02:12 07/12/24 02:12 07/12/24 02:12 07/12/24 02:12 07/12/24 02:12
Last Documented Vital Signs
Temp Pulse Resp BP Pulse Ox
98.2 F 107 18 156/98 96
07/12/24 02:12 07/12/24 02:12 07/12/24 02:12 07/12/24 02:12 07/12/24 02:59
<BETSY Chen - Last Filed: 07/12/24 02:51>
MDM/Problems Addressed
Differential Diagnosis Includes:
infectious mononucleosis; Strep. pharyngitis; viral pharyngitis
<BETSY Chen - Last Filed: 07/12/24 02:51>
*Critical Care Note
Total Time (30-74mins, 75-104mins- exclusive of procedures): Not Applicable
ED Attending Note
<BETSY Chen - Last Filed: 07/12/24 02:51>
-
Portions of this chart may have been created with voice recognition software.� Occasional wrong word or��sound alike� substitutions may have occurred due to the inherent limitations of voice recognition software.
<Bradford Snider, DO - Last Filed: 07/12/24 04:19>
ED Attending Note
Patient seen and examined by attending physician: Yes
I performed the substantive portion of visit, reviewed & personally made and approve the management plan that is documented in note by myself or DWIGHT.: Yes
ED Attending Note:
This a pleasant 23-year-old female presents the emergency department with sore throat. She has been recuperating from mononucleosis. She was first diagnosed about a month ago. She states that she initially had a sore throat but then it went away
and ultimately it returned about a week ago. During the early stages of mono she was on steroids and states that it made her feel better. Patient has also been taking Tylenol and Motrin to improve the symptoms. Patient states that swallowing is a
nuisance. Patient was seen in conjunction with the PA student. I have reviewed and agree with the history and treatment plan presented. On my independent physical exam, patient is awake, alert, and oriented x3 minimal acute distress slightly
raspy sounding voice. Lungs are clear to auscultation bilaterally without wheezes rales or rhonchi abdomen is soft and nontender extremities moves all 4 extremities.
Patient will get a dose of Decadron and be discharged home. Will follow-up with her family doctor
Discharge Plan
Departure
Patient Disposition: Home (Routine Discharge)
Date of Disposition: 07/12/24
Time of Disposition: 04:15
Patient with high blood pressure during this ER visit?: Yes
Discharge Problem:
Sore throat
Instructions: Sore Throat, Adult (DC), BLOOD PRESSURE
Prescriptions:
No Action
omeprazole 20 mg Capsule,Delayed Release(Dr/Ec)
20 mg PO DAILY
triamcinolone acetonide 0.1 % ointment
1 applic topical TID Qty: 80 0RF
prednisone 20 mg tablet
40 mg PO DAILY Qty: 10 0RF
prednisone 20 mg tablet
20 mg PO BID Qty: 8 0RF
methylprednisolone [Medrol (Mckay)] 4 mg tablets,dose pack
See Rx Instructions .ROUTE .COMPLEX Qty: 21 0RF
Rx Instructions:
for 6 days
Referrals:
[facility] [Outside]
[facility] [Outside]
NONE,* [Family Provider] -
Activity Restrictions/Additional Instructions:
It was a pleasure meeting you and taking part in your care. We hope for your continued healing and wellness.
Please read discharge instructions in their entirety. However, they are for general education and may not describe your exact diagnosis at discharge. Information on your ER visit and medical conditions were discussed with you along with appropriate
follow up information...
If indicated, please take your medications as instructed and indicated on discharge paperwork.
Please schedule a follow up appointment as directed. Call to schedule an appointment
Please return to the emergency department with ANY change in, persisting, or worsening of symptoms. If any of your symptoms do not improve, or persist, or become more severe within 6-12 hours, please return to the emergency department for further
care.
Please return to the emergency department if you develop a headache, neck pain/stiffness, fever greater than 100.4F, chest pain, shortness of breath, persistent nausea, vomiting, slurred speech, difficulty walking, numbness/tingling, weakness, signs
of infection or any other symptoms that are worrisome to you.
If you have any questions or concerns please do not hesitate to call the Hospital at or E-mail me directly at [email or web address]
Interventions
Interventions:
*Risk Screen - Suicide Last Done: 07/12/24 02:06
*General Assessment Last Done: 07/12/24 02:59
*Neglect/Abuse Screening Last Done: 07/12/24 02:06
ED- Fall Risk Assessment Last Done: 07/12/24 02:06
*ED COVID-19 Vaccine History Last Done: 07/12/24 02:06
ED-EENT Assessment Last Done: 07/12/24 02:59
ED- Pulmonary Assessment Last Done: 07/12/24 02:59
Discharge Date and Time
Print Language: BURUNDIAN
[2024-07-12] MEDS: DECADRON 10 MG PO (04:46)
[2024-07-12 04:55] VITALS: BP 132/62
== END 2024-07-12 04:55 | disposition home or self-care (01) ==
LOC: EMR 02:04
PROVIDERS: EMERGENCY PHYSICIAN Student in an Organized Health Care Education/Training Program
DX: J02.9 Acute pharyngitis, unspecified (principal); K21.9 Gastro-esophageal reflux disease without esophagitis; F17.200 Nicotine dependence, unspecified, uncomplicated; Z87.11 Personal history of peptic ulcer disease
CPT/HCPCS: 99283; 87070; 87880

== ENCOUNTER 2024-09-01 01:36 | Emergency (ER) | payer OTHER, SELFPAY ==
[2024-09-01 01:49] VITALS: BP 150/96
[2024-09-01 02:20] LABS: Hematocrit 38.9 % (37.0-47.0); Hemoglobin 13.3 g/dL (12.0-16.0); Mean Corp Hgb Conc. 34.2 g/dL (33.0-37.0); Mean Corpuscular Hgb 29.6 pg (27.0-31.0); Mean Corpuscular Volume 86.6 fL (81.0-99.0); Mean Platelet Volume 9.4 fL (7.4-10.4); Platelet Count 327 10^3/uL (130-400); Red Blood Cell Count 4.49 10^6/uL (4.20-5.40); Red Cell Dist. Width 12.4 % (11.5-14.5); White Blood Cell Count 13.3 10^3/uL (4.8-10.8)
[2024-09-01 02:35] LABS: HCG, Serum Qualitative Screen Negative
[2024-09-01 02:46] LABS: Monotest Negative (Negative)
[2024-09-01 02:49] LABS: Blood Urea Nitrogen 9 mg/dl (7-17); Calcium 9.4 mg/dl (8.4-10.2); Carbon Dioxide 22 mmol/L (22-30); Chloride 105 mmol/L (98-107); Glucose 112 mg/dl (70-99); Potassium 4.2 mmol/L (3.5-5.1); Sodium 138 mmol/L (135-145); eGFR > 60.00
--- NOTE | 2024-09-01 07:50 | ED.GENMED ---
History of Present Illness
General
Chief Complaint: Throat Problem
Source: patient
Exam Limitations: none
Time Seen by Provider: 09/01/24 07:06
Nursing documentation reviewed up to this point in time: agreed with
History of Present Illness
History of Present Illness:
23-year-old female past medical history of PCOS previous mono presenting to the emergency department today with concerns of left-sided tonsillar swelling some ear pressure. Had mono 4 months ago this feels somewhat similar to when she had that.
Denies any difficulty swallowing or breathing. Denies any chest pain shortness of breath. No recent fevers.
Past History
Past History
ED Past Medical History: GERD, Psychiatric (Anxiety, Bipolar, Depression) and Other (Peptic ulcer, PCOS)
ED Past Surgical History: None
Social History
Tobacco: Smoker
Alcohol: None
Drug: Marijuana
Personal: Single
Living: with family
Review of Systems
Review of Systems
Allergies reviewed?: Yes
All Other Systems: ROS reviewed and negative except as documented in HPI and ROS
Phy Exam
Physical Exam
Physical Exam:
GENERAL: Alert , in no apparent distress
EYE: pupils equal and reactive
NECK: Supple, no significant adenopathy.
ENT: Very mild swelling to left posterior pharynx but otherwise grossly patent airway no exudate o/p clr, mmm.
CARDIAC: Regular rate and rhythm .
LUNGS: Clear breath sounds bilaterally, no acute respiratory distress, no wheezes/rales/rhonchi
ABDOMEN: Soft, without focal tenderness, no r/g, no cvat
NEUROLOGICAL: Alert and oriented, no focal neuro deficits
SKIN: Warm and dry, skin intact.
MUSCULOSKELETAL: No edema, well perfused.
PSYCH: Normal and appropriate interaction.
Course
Orders/Labs/Results
Orders:
Orders
09/01/24 01:55
Test Result ONCE
09/01/24 02:08
Basic Metabolic Panel Urgent
Complete Blood Count/No Diff Urgent
HCG, Serum Qualitative Screen Urgent
Monotest Urgent
09/01/24 02:09
Rapid Strep Group A Urgent
RACHEL Source: Throat/Pharynx
Specimen Description:
Date Specimen was Collected: 09/01/24
Time Specimen was Collected: 01:55
09/01/24 07:50
Dexamethasone [Decadron] 10 mg PO NOW STA
Abnormal Lab Results
09/01/24
02:08
WBC 13.3 H 10^3/uL
(4.8-10.8)
Creatinine 1.1 H mg/dL
(0.6-1.0)
Glucose 112 H mg/dl
(70-99)
09/01/24 02:08
09/01/24 02:08
Vital Signs
Initial and Last Documented VS:
Initial Vital Signs
Temp Pulse Resp BP Pulse Ox
98.7 F 96 18 150/96 98
09/01/24 01:49 09/01/24 01:49 09/01/24 01:49 09/01/24 01:49 09/01/24 01:49
Last Documented Vital Signs
Temp Pulse Resp BP Pulse Ox
98.7 F 96 18 150/96 98
09/01/24 01:49 09/01/24 01:49 09/01/24 01:49 09/01/24 01:49 09/01/24 01:49
MDM/Problems Addressed
MDM/Problems Addressed:
23-year-old female presenting to the emergency department with some pressure to her left ear and some throat discomfort over the past few weeks. She has mild swelling on examination but no evidence of bacterial infection. She was written for
steroid due to ongoing inflammation and some effusion to the left ear otherwise will need to follow-up with ENT for ongoing issues. Return precautions given.
*Critical Care Note
Total Time (30-74mins, 75-104mins- exclusive of procedures): Not Applicable
ED Attending Note
-
Portions of this chart may have been created with voice recognition software.� Occasional wrong word or��sound alike� substitutions may have occurred due to the inherent limitations of voice recognition software.
Discharge Plan
Departure
Patient Disposition: Home (Routine Discharge)
Date of Disposition: 09/01/24
Time of Disposition: 07:51
Patient with high blood pressure during this ER visit?: No
Condition: Good
Covid-19: Not Applicable
Discharge Problem:
Throat pain
Instructions: Sore Throat, Adult (DC)
Prescriptions:
New
prednisone 20 mg tablet
40 mg PO DAILY 3 Days Qty: 6 0RF
fluticasone propionate [Flonase Allergy Relief] 50 mcg/actuation spray,suspension
1 spray intranasal BID Qty: 16 0RF
No Action
omeprazole 20 mg Capsule,Delayed Release(Dr/Ec)
20 mg PO DAILY
triamcinolone acetonide 0.1 % ointment
1 applic topical TID Qty: 80 0RF
prednisone 20 mg tablet
40 mg PO DAILY Qty: 10 0RF
prednisone 20 mg tablet
20 mg PO BID Qty: 8 0RF
methylprednisolone [Medrol (Mckay)] 4 mg tablets,dose pack
See Rx Instructions .ROUTE .COMPLEX Qty: 21 0RF
Rx Instructions:
for 6 days
Referrals:
Macario Phelps MD [Active] - Follow up in 5-7 days
NONE,* [Family Provider] -
Activity Restrictions/Additional Instructions:
You came to the emergency department today with concerns of tonsillar swelling. Please take the medications to help with symptoms and otherwise follow-up with ENT for ongoing issues. Return for any worsening, new or concerning symptoms
Interventions
Interventions:
*Risk Screen - Suicide Last Done: 09/01/24 01:49
*Neglect/Abuse Screening Last Done: 09/01/24 01:49
Discharge Date and Time
Print Language: VENEZUELAN
[2024-09-01] MEDS: DECADRON 10 MG PO (08:12)
== END 2024-09-01 08:35 | disposition home or self-care (01) ==
LOC: EMR 01:36
PROVIDERS: Emergency Medicine; EMERGENCY PHYSICIAN Emergency Medicine
DX: R07.0 Pain in throat (principal); K21.9 Gastro-esophageal reflux disease without esophagitis; Z87.11 Personal history of peptic ulcer disease; F17.200 Nicotine dependence, unspecified, uncomplicated; Z86.19 Personal history of other infectious and parasitic diseases
CPT/HCPCS: 99283; 80048; 84703; 85027; 86308; 87070; 87880

== ENCOUNTER 2024-09-08 10:23 | Emergency (ER) | payer OTHER, SELFPAY ==
[2024-09-08 10:32] VITALS: BP 132/97
--- NOTE | 2024-09-08 11:47 | ED.GENMED ---
History of Present Illness
General
Chief Complaint: Breathing Problem
Source: patient
Exam Limitations: none
Time Seen by Provider: 09/08/24 11:46
Nursing documentation reviewed up to this point in time: agreed with
History of Present Illness
History of Present Illness:
23-year-old female with history of GERD, PCOS, bipolar, anxiety/depression presents stating at 1 a.m. she awakened with pain in left upper chest, and feeling like she couldn't breathe. She jumped out of bed and her pulse ox read HR 166 and O2 98%.
Three minutes later pulse ox had HR 100.
She finished Prednisone 40 mg x 3 days two days ago and states she immediately felt 'uneasy' and felt like she was having an anxiety attack.
She also started with diarrhea 11:00 last P.M. and has had about 8 episodes. Denies fever, abdominal pain.
Past History
Past History
ED Past Medical History: GERD, Psychiatric (Anxiety, Bipolar, Depression) and Other (Peptic ulcer, PCOS)
ED Past Surgical History: None
Social History
Tobacco: Smoker
Alcohol: None
Drug: Marijuana
Personal: Single
Living: with family
Review of Systems
Review of Systems
Allergies reviewed?: Yes
All Other Systems: ROS reviewed and negative except as documented in HPI and ROS
Constitutional: Denies fever or fatigue
EENT: Denies sore throat
Respiratory: Reports trouble breathing (earlier, not at this time); Denies cough
Cardiac: Reports chest pain and palpitations (reports HR 166 earlier via pulse ox ); Denies diaphoresis
: Reports no symptoms
Musculoskeletal: Reports no symptoms
Skin: Reports no symptoms
Neurological: Reports no symptoms
Psychiatric: Reports anxiety
Phy Exam
Physical Exam
Physical Exam:
GENERAL: No acute distress. A&Ox3.
CONSTITUTIONAL: Afebrile.
EYES: clear, conjunctivae normal
ENMT: moist mucus membranes, Pharynx nl
RESPIRATORY: Regular respirations, nonlabored, lungs clear.
CARDIOVASCULAR: Regular rate and rhythm, no murmurs, no rubs.
GI: Soft, nontender, normal BS
MUSCULOSKELETAL: Moves with ease. Well perfused.
SKIN: Warm, dry, pink
PSYCH: Normal mood and affect. Well kept, interactive and appropriate
NEUROLOGIC: Awake, alert and oriented. No focal neurological deficits
Course
Orders/Labs/Results
Orders:
Orders
09/08/24 10:35
Electrocardiogram (*1) Urgent
Reason for Study: Shortness of Breath
EKG- Treatment ONCE
09/08/24 12:01
CR Chest - 2 Views Urgent
Comment:
Reason For Exam: Left chest pain, SOB
09/08/24 12:42
COVID-19 Antigen Urgent
Source: Nasal Swab
Comprehensive Metabolic Panel Urgent
TSH Reflex To Free T4 Urgent
Troponin I Urgent
09/08/24 13:05
Complete Blood Count/With Diff Urgent
Comment: PREVIOUS CLOTTED
Abnormal Lab Results
09/08/24
12:42
Glucose 111 H mg/dl
(70-99)
ALT 39 H U/L
(0-35)
09/08/24 12:42
Vital Signs
Initial and Last Documented VS:
Initial Vital Signs
Temp Pulse Resp BP Pulse Ox
98.4 F 105 20 132/97 97
09/08/24 10:32 09/08/24 10:32 09/08/24 10:32 09/08/24 10:32 09/08/24 10:32
Last Documented Vital Signs
Temp Pulse Resp BP Pulse Ox
98.3 F 88 18 139/86 98
09/08/24 13:50 09/08/24 13:50 09/08/24 13:50 09/08/24 13:50 09/08/24 13:50
MDM/Problems Addressed
Differential Diagnosis Includes:
anxiety related to steroids, general anxiety, Thyroid abnormality, SVT
MDM/Problems Addressed:
23-year-old female with history of GERD, PCOS, bipolar, anxiety/depression presents stating at 1 a.m. she awakened with pain in left upper chest, and feeling like she couldn't breathe. She jumped out of bed and her pulse ox read HR 166 and O2 98%.
Three minutes later pulse ox had HR 100.
She finished Prednisone 40 mg x 3 days two days ago and states she immediately felt 'uneasy' and felt like she was having an anxiety attack.
She also started with diarrhea 11:00 last P.M. and has had about 8 episodes. Denies fever, abdominal pain.
Afebrile, NAD
EKG NSR
Patient is tearful at times expressing that she is extremely afraid that she will experience anxiety like she did a couple years ago where she would not even go out anywhere for over a year
1:30 PM:
CBC: Specimen hemolyzed. Patient has no infectious symptoms, no history of anemia, she is a very hard stick, she is in agreement that she does not want to be stuck again and this is reasonable as I would not expect any abnormalities
CMP normal
Troponin normal
COVID-negative
TSH normal
Pt reassured.
Pt ambulated out with normal gait. Pleasant and appreciative of the care.
*EKG
EKG Intrepretation Date: 09/08/24
Interpretation: normal
Heart Rate: 93
Rate: normal
Rhythm: sinus
[place]: normal axis
Interval: normal interval
QRS Pattern: normal QRS
Ischemia: no ischemia
*Critical Care Note
Total Time (30-74mins, 75-104mins- exclusive of procedures): Not Applicable
ED Attending Note
-
Portions of this chart may have been created with voice recognition software.� Occasional wrong word or��sound alike� substitutions may have occurred due to the inherent limitations of voice recognition software.
Discharge Plan
Departure
Patient Disposition: Home (Routine Discharge)
Date of Disposition: 09/08/24
Time of Disposition: 13:40
Patient with high blood pressure during this ER visit?: No
Condition: Good
Discharge Problem:
Anxiety about health, Atypical chest pain
Instructions: Chest pain, Anxiety in adults - ED discharge instructions
Prescriptions:
No Action
omeprazole 20 mg Capsule,Delayed Release(Dr/Ec)
20 mg PO DAILY
triamcinolone acetonide 0.1 % ointment
1 applic topical TID Qty: 80 0RF
prednisone 20 mg tablet
40 mg PO DAILY Qty: 10 0RF
prednisone 20 mg tablet
20 mg PO BID Qty: 8 0RF
methylprednisolone [Medrol (Mckay)] 4 mg tablets,dose pack
See Rx Instructions .ROUTE .COMPLEX Qty: 21 0RF
Rx Instructions:
for 6 days
prednisone 20 mg tablet
40 mg PO DAILY 3 Days Qty: 6 0RF
fluticasone propionate [Flonase Allergy Relief] 50 mcg/actuation spray,suspension
1 spray intranasal BID Qty: 16 0RF
Referrals:
NONE,* [Family Provider] -
Activity Restrictions/Additional Instructions:
As we discussed, your workup here today shows nothing worrisome.
Someone from the Primary Care Provider hotline will contact you for a new doctor.
Interventions
Interventions:
*Risk Screen - Suicide Last Done: 09/08/24 10:32
*General Assessment Last Done: 09/08/24 12:17
*Neglect/Abuse Screening Last Done: 09/08/24 12:20
ED- Fall Risk Assessment Last Done: 09/08/24 12:17
*ED COVID-19 Vaccine History Last Done: 09/08/24 12:17
*Nursing Disposition Last Done: 09/08/24 13:50
ED- Cardiac Assessment Last Done: 09/08/24 12:17
ED- Pulmonary Assessment Last Done: 09/08/24 12:17
Discharge Date and Time
Discharge Date/Time: 09/08/24 13:55
Print Language: BENGALI
[2024-09-08 12:17] VITALS: BMI 48.7
[2024-09-08 12:35] VITALS: BP 144/83
[2024-09-08 13:03] LABS: COVID-19 Antigen Negative (Negative)
[2024-09-08 13:05] LABS: ALT (SGPT) 39 U/L (0-35); AST (SGOT) 32 U/L (14-36); Albumin 4.1 g/dl (3.5-5.0); Alkaline Phosphatase 89 U/L (38-126); Blood Urea Nitrogen 15 mg/dl (7-17); Calcium 9.4 mg/dl (8.4-10.2); Carbon Dioxide 23 mmol/L (22-30); Chloride 107 mmol/L (98-107); Estimated Creatinine Clearance > 125 ml/min; Glucose 111 mg/dl (70-99); Potassium 4.2 mmol/L (3.5-5.1); Sodium 137 mmol/L (135-145); Total Bilirubin 0.7 mg/dl (0.2-1.3); Total Protein 7.3 g/dl (6.3-8.2); eGFR > 60.00
[2024-09-08 13:16] LABS: Troponin I < 0.012 ng/ml
[2024-09-08 13:44] LABS: TSH Reflex To Free T4 1.34 uIU/ml (0.47-4.68)
[2024-09-08 13:50] VITALS: BP 139/86
--- NOTE | 2024-09-08 13:50 | EDRN ---
Reviewed discharge instructions with patient. Verbalized understanding. Ambulated with steady gait to the lobby.
== END 2024-09-08 13:55 | disposition home or self-care (01) ==
LOC: EMR 10:23
PROVIDERS: Registered Nurse; EMERGENCY PHYSICIAN Student in an Organized Health Care Education/Training Program
DX: F41.9 Anxiety disorder, unspecified (principal); R07.89 Other chest pain; K21.9 Gastro-esophageal reflux disease without esophagitis; E28.2 Polycystic ovarian syndrome; F31.9 Bipolar disorder, unspecified; F17.200 Nicotine dependence, unspecified, uncomplicated; Z87.11 Personal history of peptic ulcer disease
CPT/HCPCS: 99283; 71046; 80053; 84443; 84484; 87811; 93005

== ENCOUNTER 2024-10-20 03:40 | Emergency (ER) | payer OTHER, SELFPAY ==
[2024-10-20 03:40] VITALS: BMI 47.8
[2024-10-20 03:56] VITALS: BP 136/80
[2024-10-20 06:34] VITALS: BP 134/78
[2024-10-20 07:01] VITALS: BP 143/60
--- NOTE | 2024-10-20 07:14 | ED.GENMED ---
History of Present Illness
General
Chief Complaint: Extremity Pain (non-traumatic)
Time Seen by Provider: 10/20/24 07:05
History of Present Illness
History of Present Illness:
23-year-old female presents the emergency department for ration of left lower extremity pain. She reports discomfort to the anterior medial left leg does not radiate proximally, present only when walking or when palpating denies pain at rest.
Denies any traumatic injuries. Has been present for the past 24 hours. No recent prolonged immobilization or surgeries, denies use of exogenous estrogen. No prior history of DVT or PE.
Past History
Past History
ED Past Medical History: GERD, Psychiatric (Anxiety, Bipolar, Depression) and Other (Peptic ulcer, PCOS)
ED Past Surgical History: None
Social History
Tobacco: Smoker
Alcohol: None
Drug: Marijuana
Personal: Single
Living: with family
Review of Systems
Review of Systems
Allergies reviewed?: Yes
All Other Systems: ROS reviewed and negative except as documented in HPI and ROS
Phy Exam
Physical Exam
Physical Exam:
GEN: Well appearing, NAD, WDWN
HEENT: Oral mucosa moist, no scleral icterus
Cardiac: Regular rate
Lung: No respiratory distress, no tachypnea
MSK: No gross deformity or injuries. No palpable abnormality to the left anterior medial lower leg. No palpable venous cord, no pain with passive stretch of the left ankle, no pain with resisted dorsiflexion of the left ankle. No erythema or open
wounds. Calfs are symmetric bilaterally with no calf muscle tenderness
Skin: Good color, no pallor or jaundice, no rashes
Neuro: AO x3, moves all extremities freely
Psych: Calm, cooperative
Course
Vital Signs
Initial and Last Documented VS:
Initial Vital Signs
Temp Pulse Resp BP Pulse Ox
98.3 F 96 18 136/80 97
10/20/24 03:56 10/20/24 03:56 10/20/24 03:56 10/20/24 03:56 10/20/24 03:56
Last Documented Vital Signs
Temp Pulse Resp BP Pulse Ox
97.6 F 82 22 143/60 97
10/20/24 07:02 10/20/24 06:34 10/20/24 06:34 10/20/24 07:01 10/20/24 06:34
MDM/Problems Addressed
MDM/Problems Addressed:
Likely musculoskeletal versus superficial phlebitis, no clinical evidence of DVT, no indication for ultrasound. Discussed supportive care including NSAIDs and warm compresses
*Critical Care Note
Total Time (30-74mins, 75-104mins- exclusive of procedures): Not Applicable
ED Attending Note
-
Portions of this chart may have been created with voice recognition software.� Occasional wrong word or��sound alike� substitutions may have occurred due to the inherent limitations of voice recognition software.
Discharge Plan
Departure
Patient Disposition: Home (Routine Discharge)
Date of Disposition: 10/20/24
Time of Disposition: 07:16
Patient with high blood pressure during this ER visit?: No
Discharge Problem:
Left leg pain
Prescriptions:
No Action
omeprazole 20 mg Capsule,Delayed Release(Dr/Ec)
20 mg PO DAILY
triamcinolone acetonide 0.1 % ointment
1 applic topical TID Qty: 80 0RF
prednisone 20 mg tablet
40 mg PO DAILY Qty: 10 0RF
prednisone 20 mg tablet
20 mg PO BID Qty: 8 0RF
methylprednisolone [Medrol (Mckay)] 4 mg tablets,dose pack
See Rx Instructions .ROUTE .COMPLEX Qty: 21 0RF
Rx Instructions:
for 6 days
prednisone 20 mg tablet
40 mg PO DAILY 3 Days Qty: 6 0RF
fluticasone propionate [Flonase Allergy Relief] 50 mcg/actuation spray,suspension
1 spray intranasal BID Qty: 16 0RF
Activity Restrictions/Additional Instructions:
Take 325mg aspirin once daily (alternatively you may take 600mg ibuprofen every 8 hours) for 7-10 days
Elevate leg when not active
If you develop pain in the upper calf or back of the knee, OR leg swelling, return to the ER or follow up with your primary doctor for further evaluation
Interventions
Interventions:
*Risk Screen - Suicide Last Done: 10/20/24 03:56
*General Assessment Last Done: 10/20/24 06:58
*Neglect/Abuse Screening Last Done: 10/20/24 03:56
*ED- Fall Risk Assessment Last Done: 10/20/24 06:59
*ED COVID-19 Vaccine History Last Done: 10/20/24 06:59
*Nursing Disposition Last Done: 10/20/24 07:32
ED-Skin Assessment Last Done: 10/20/24 06:59
ED-Peripheral Vascular Assessment Last Done: 10/20/24 06:59
ED-Musculoskeletal Assessment Last Done: 10/20/24 06:57
Discharge Date and Time
Discharge Date/Time: 10/20/24 07:32
Print Language: BENINESE
== END 2024-10-20 07:32 | disposition home or self-care (01) ==
LOC: EMR 03:40
PROVIDERS: EMERGENCY PHYSICIAN Emergency Medicine; FAMILY PHYSICIAN Nurse Practitioner
DX: M79.605 Pain in left leg (principal); K21.9 Gastro-esophageal reflux disease without esophagitis; F41.9 Anxiety disorder, unspecified; F31.9 Bipolar disorder, unspecified; Z87.11 Personal history of peptic ulcer disease; F17.200 Nicotine dependence, unspecified, uncomplicated
CPT/HCPCS: 99282